=== PATIENT | male | born 1965 | race Caucasian/White ===

== ENCOUNTER 2017-05-30 18:01 | Emergency (ER) | payer OTHER ==
[~2017-05-30] VITALS: Ht 177.8 cm; Wt 81.0 kg
[~2017-05-30 18:01] MED LIST: CARV6.25 PO; CHLO25 PO; DOCU100S PO; FOLI1 PO; HYDR-3533 PO; LEVE500 PO; QUET25 PO; TAB-TAB PO; TAMS.4 PO; THIA100T PO
[2017-05-30 19:00] VITALS: BP 90/54; PULSE 70; RESP 16; TEMP 98.1; O2SAT 96
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
[2017-05-31 07:55] VITALS: BP 120/86
== END 2017-05-31 07:55 | disposition home or self-care (01) ==
LOC: NEDAMB 18:01
DX: F10.129 Alcohol abuse with intoxication, unspecified (principal)
CPT/HCPCS: 99283